=== PATIENT | male | born 1950 ===

== ENCOUNTER → 2019-02-05 | Outpatient (CLI) | payer OTHER | END | disposition home or self-care (01) | LOC: PLD 07:28 → LAB SHORT 07:28 | DX: L98.429 Non-pressure chronic ulcer of back with unspecified severity (principal) | CPT/HCPCS: 88305; 88312 ==

== ENCOUNTER → 2019-02-19 | Outpatient (CLI) | payer OTHER | END | disposition home or self-care (01) | LOC: LAB 17:30 → LAB SHORT 17:30 | DX: D48.9 Neoplasm of uncertain behavior, unspecified (principal) | CPT/HCPCS: 87070; 87075; 87077; 87147; 87186; 87205 ==